=== PATIENT | male | born 1990 | race Caucasian/White ===

== ENCOUNTER 2025-04-20 13:03 | Outpatient (CLI) | payer OTHER, SELFPAY | END 2025-04-20 13:04 | disposition home or self-care (01) | PROVIDERS: PCP Family Medicine; Visit Provider Family Medicine | DX: M10.9 Gout, unspecified (principal); I10 Essential (primary) hypertension; E55.9 Vitamin D deficiency, unspecified; Z13.6 Encounter for screening for cardiovascular disorders; F41.1 Generalized anxiety disorder; Z79.899 Other long term (current) drug therapy | CPT/HCPCS: 80048; 80061; 84550 ==